=== PATIENT | male | born 1965 | race Caucasian/White ===

== ENCOUNTER → 2024-08-25 | Outpatient (CLI) | payer OTHER, SELFPAY ==
--- NOTE | 2024-08-25 | XR_ITS ---
Examination: Shoulder,right, 3 views Technique: Shoulder AP internal rotation, AP external rotation, Y view shoulder, 3 views Exam date and time :August 25, 2024 at 1247 hours INDICATIONS: Right shoulder pain 6 months. FINDINGS: Moderate osteopenia. No shoulder fracture or dislocation. Moderate narrowing glenohumeral joint No calcific tendinitis IMPRESSION: Moderate narrowing glenohumeral joint
== END | disposition home or self-care (01) ==
PROVIDERS: PCP Family Medicine; Referring Provider Chiropractor; Visit Provider Chiropractor
DX: M25.811 Other specified joint disorders, right shoulder (principal)
CPT/HCPCS: 73030

== ENCOUNTER → 2024-11-05 | Outpatient (CLI) | payer OTHER, SELFPAY ==
--- NOTE | 2024-11-05 14:56 | EKG_ITS ---
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
== END | disposition home or self-care (01) ==
LOC: SEKG 14:43
PROVIDERS: PCP Family Medicine; Referring Provider Family Medicine; Visit Provider Family Medicine
DX: R00.0 Tachycardia, unspecified (principal); E78.5 Hyperlipidemia, unspecified; N40.0 Benign prostatic hyperplasia without lower urinary tract symptoms
CPT/HCPCS: 93005

== ENCOUNTER → 2024-11-06 | Outpatient (CLI) | payer OTHER, SELFPAY ==
[2024-11-06 08:30] LABS: Basophils % (Auto) 0 % (0-2.5); Eosinophils % (Auto) 1 % (0-10); Hematocrit 45.3 % (41.0-53.0); Hemoglobin 16.3 g/dL (13.5-16.0); Immature Granulocytes % (Auto) 0 % (0-0); Immature Granulocytes Auto 0.02 Thou/mm3 (0.00-0.00); Lymphocytes # (Auto) 1.7 Thou/mm3 (1.0-4.8); Lymphocytes % (Auto) 28 % (10-50); Mean Corpuscular Volume 83 fL (80-100); Monocytes # (Auto) 0.6 Thou/mm3 (0.0-0.8); Monocytes % (Auto) 9 % (0-12); Neutrophils # (Auto) 3.9 Thou/mm3 (1.8-7.7); Neutrophils % (Auto) 62 % (37-80); Nucleated Red Blood Cell % 0 /100 WBC (0); Platelet Count 267 Thou/mm3 (140-440); RDW Standard Deviation 38.1 fL (35.1-43.9); Red Blood Count 5.44 Miln/mm3 (4.50-5.90); White Blood Count 6.3 Thou/mm3 (3.8-10.6)
[2024-11-06 08:44] LABS: Alanine Aminotransferase 27 U/L (10-49); Albumin, Serum 4.6 gm/dL (3.4-4.8); Alkaline Phosphatase 74 U/L (46-116); Anion Gap 7 (7-16); Aspartate Amino Transferase 20 U/L (0-34); BUN/Creatinine Ratio 24 Ratio (12-20); Bilirubin,Direct 0.7 mg/dL (0.0-0.3); Bilirubin,Total 2.1 mg/dL (0.3-1.2); Blood Urea Nitrogen 24 mg/dL (9-23); Calcium 9.8 mg/dL (8.3-10.6); Carbon Dioxide 27.6 mMol/L (20.0-31.0); Chloride 107 mMol/L (98-107); Cholesterol 136 mg/dL (132-200); Glucose 105 mg/dL (74-106); HDL Cholesterol 34 mg/dL (40-60); LDL Cholesterol,Calculated 74 mg/dL (0-130); Osmolality,Calculated 287 (275-295); Potassium 4.4 mMol/L (3.4-5.1); Sodium 142 mMol/L (136-145); Total Protein 6.9 gm/dL (5.7-8.2); Triglycerides 141 mg/dL (30-150); eGFR > 60 See Note
== END | disposition home or self-care (01) ==
PROVIDERS: PCP Family Medicine; Referring Provider Family Medicine; Visit Provider Family Medicine
DX: R40.0 Somnolence (principal); E78.5 Hyperlipidemia, unspecified; R00.0 Tachycardia, unspecified
CPT/HCPCS: 36415; 80048; 80061; 80076; 85025

== ENCOUNTER 2025-01-15 06:36 | Day surgery (SDC) | payer OTHER, SELFPAY ==
[2025-01-13 17:16] VITALS: BMI 26.9
--- NOTE | 2025-01-14 07:55 | EKG_ITS ---
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
[2025-01-14 08:43] LABS: Basophils % (Auto) 1 % (0-2.5); Eosinophils % (Auto) 1 % (0-10); Hematocrit 43.2 % (41.0-53.0); Immature Granulocytes % (Auto) 1 % (0-0); Immature Granulocytes Auto 0.03 Thou/mm3 (0.00-0.00); Lymphocytes # (Auto) 1.3 Thou/mm3 (1.0-4.8); Lymphocytes % (Auto) 22 % (10-50); Mean Corpuscular Hemoglobin 30.9 pg (25.0-35.0); Mean Corpuscular Volume 84 fL (80-100); Monocytes # (Auto) 0.5 Thou/mm3 (0.0-0.8); Monocytes % (Auto) 9 % (0-12); Neutrophils # (Auto) 3.8 Thou/mm3 (1.8-7.7); Neutrophils % (Auto) 67 % (37-80); Nucleated Red Blood Cell % 0 /100 WBC (0); Platelet Count 252 Thou/mm3 (140-440); RDW Standard Deviation 38.5 fL (35.1-43.9); Red Blood Count 5.17 Miln/mm3 (4.50-5.90); White Blood Count 5.7 Thou/mm3 (3.8-10.6)
[2025-01-14 08:51] LABS: Partial Thromboplastin Time 26.7 Seconds (22.0-36.0); Prothrombin Time 11.3 Seconds (9.0-12.2)
[2025-01-14 09:01] LABS: Anion Gap 8 (7-16); BUN/Creatinine Ratio 18 Ratio (12-20); Blood Urea Nitrogen 18 mg/dL (9-23); Calcium 9.3 mg/dL (8.3-10.6); Carbon Dioxide 26.3 mMol/L (20.0-31.0); Chloride 109 mMol/L (98-107); Estimated Creatinine Clearance 91.3 mL/min (>60); Glucose 96 mg/dL (74-106); Osmolality,Calculated 286 (275-295); Potassium 4.4 mMol/L (3.4-5.1); Sodium 143 mMol/L (136-145); eGFR > 60 See Note
[2025-01-15] VITALS (13 sets, daily range): BP systolic 94–136; BP diastolic 64–97; PULSE 60–69; RESP 13–20; TEMP 36.3–36.6; O2SAT 94–98; BMI 26.9
--- NOTE | 2025-01-15 09:35 | ESOP_ITS ---
RE: MADDIE MUNOZ : 1965 DATE OF OPERATION: 01/15/2025 PROCEDURE PERFORMED: 1. Diagnostic left heart cardiac catheterization, selective coronary angiogram, and left ventricular angiogram, CPT 42521. 2. Ultrasound-guided access, right radial artery access. 3. Conscious sedation, 30 minutes duration. DIAGNOSIS: Abnormal stress test and angina pectoris. HISTORY AND INDICATIONS: The patient is a 59-year-old male with a past medical history of hypertension, and has been having recurrent episodes of shortness of breath on exertion. Cardiac stress test and nuclear scan was abnormal. Coronary angiogram was recommended to assess the patient is a candidate for intervention and revascularization. DESCRIPTION OF PROCEDURE: The patient was brought to cardiac catheterization laboratory. He was given versed 2 mg and Fentanyl 50 mcg __ for conscious sedation. Right radial approach taken. Right radial artery cannulated by micropuncture technique and a 6-Faroese glide sheath was introduced. A 6-Faroese TIG _4.5diagnostic catheter was used. Performed left coronary angiogram. Left heart catheterization and left ventricular angiogram performed by the same catheter. A FR4 5-Faroese diagnostic catheter was used to perform right coronary angiogram. The patient tolerated the procedure well. No complications. TR band was applied. Hemostasis secured. Radial cocktail was given with nitroglycerin after cannulation of the radial artery. Coronary angiogram showed following findings. Right coronary artery is large and dominant, showed evidence of ectasua mid Rca , no significant stenosis. Posterior descending artery PAVEL nhung left main coronary artery is nhung His left anterior descending showed mild irregularities with no significant stenosis. Ramus intermedius is normal. Circumflex artery gives off obtuse marginal branch appears normal. Left ventricular pressure 100/3 mmHg. EDP is only 5. Aortic pressure 105/70 mmHg. No gradient across the aortic valve. Left ventricular angiogram showed normal left ventricular wall motion with an ejection fraction of 65%. SUMMARY OF FINDINGS: 1. Mild activity of the right coronary artery. 2. Mild plaquing of the left anterior descending artery. 3. Nonobstructive epicardial coronary artery. 4. Normal left ventricular function. RECOMMENDATIONS: The patient is reassured about the absence of significant obstructive coronary artery disease. He does have mild plaque in coronary arteries. Recommend low-dose aspirin daily and statin therapy to keep LDL cholesterol close to 100. DT: 08:31:36 TT: 09:33:00 Ref: [id number] - TID: [id number] MTDD
--- NOTE | 2025-01-15 11:54 | PC.NURSE ---
0835 patient is awake, alert, breathing unlabored, s/p LHC by Dr. Jose, TR band present to right wrist, no bleeding or hematoma noted. report received from Lisa PARRA, patient to recover for 3 hours. 1035 TR band removed, no bleeding or hematoma noted 1148 Patient is awake, alert, breathing unlabored, dressing to right wrist dry with no bleeding or hematoma noted, patient able to tolerate breakfast tray with no nausea or vomiting, able to ambulate to bathroom and void, discharge instructions given, patient discharged home in wheelchair with all belongings.
== END 2025-01-15 11:48 | disposition home or self-care (01) ==
PROVIDERS: PCP Family Medicine; Referring Provider Internal Medicine Cardiovascular Disease; Visit Provider Internal Medicine Cardiovascular Disease
PROC: (CPT 93458; principal; 2025-01-15 07:30)
DX: I25.119 Atherosclerotic heart disease of native coronary artery with unspecified angina pectoris (principal); I10 Essential (primary) hypertension; E78.00 Pure hypercholesterolemia, unspecified; N40.0 Benign prostatic hyperplasia without lower urinary tract symptoms; Z87.442 Personal history of urinary calculi; Z79.899 Other long term (current) drug therapy; Z01.810 Encounter for preprocedural cardiovascular examination
CPT/HCPCS: 93458; 36415; 80048; 85025; 85610; 85730; 93005; 99152; 99153; A4649; C1769; C1887; C1894; J0153; J0171; J0282; J0461; J1643; J2250; J2310; J2371; J3010; J3490

== ENCOUNTER → 2025-02-18 | Outpatient (CLI) | payer OTHER, SELFPAY ==
--- NOTE | 2025-02-18 13:30 | XR_ITS ---
Examination: Abdomen sonogram, complete Date and time of exam: 2024 1346 hours INDICATIONS: Elevated bilirubin on laboratory examination November 06, 2024 and weight loss 2 months. Technique: Multiple real-time grayscale transabdominal sonographic images of the abdomen have been obtained. Findings: Normal gallbladder Normal common bile duct 0.2 cm Pancreatic head 2.9 cm Aorta not enlarged Liver 15.8 cm fatty infiltration Normal hepatopedal portal venous flow Patent IVC Right kidney 12.8 cm cortex 2.4 cm Left kidney 11.5 cm cortex 2.0 cm Mild renal parenchymal scar formation Spleen 10.2 cm IMPRESSION: Normal gallbladder Normal common bile duct Liver normal size fatty infiltration
== END | disposition home or self-care (01) ==
LOC: CDIM 12:58
PROVIDERS: PCP Family Medicine; Referring Provider Family Medicine; Visit Provider Family Medicine
DX: K76.0 Fatty (change of) liver, not elsewhere classified (principal); N28.89 Other specified disorders of kidney and ureter
CPT/HCPCS: 76700